=== PATIENT | male | born 1955 | race Caucasian/White ===

== ENCOUNTER 2022-07-26 05:31 | Inpatient (IN) | payer OTHER ==
[~2022-07-26] VITALS: Ht 162.6 cm; Wt 98.9 kg
[2022-07-26 06:26] LABS: BG BASE EXCESS -6.7 mmol/L (-2.0-2.0); BG CARBOXYHEMOGLOBIN 1.7 % (0.5-1.5); BG DEOXYHEMOGLOBIN 1.5 % (0.0-5.0); BG FRACTION INSPIRED OXYGEN 100; BG HCO3 ACT 23.4 mmol/L (22.0-26.0); BG OXYGEN SATURATION 98.5 % (92.0-98.5); BG OXYHEMOGLOBIN 96.8 % (94.0-97.0); BG PCO2 70.8 mmHg (35.0-45.0); BG PH 7.137 (7.350-7.450); BG PO2 165.6 mmHg (75.0-100.0); BG SAMPLE SITE LEFT RADIAL; BG TOTAL HEMOGLOBIN 12.5 g/dL (12.0-18.0); BG VENT MODE MASK - NRB
[2022-07-26 06:36] LABS: BASOPHILS % 0.1 % (0.0-2.0); EOSINOPHILS % 0.1 % (0.0-5.0); HEMATOCRIT. 37.9 % (42.0-52.0); HEMOGLOBIN. 12.1 g/dL (14.0-18.0); LYMPHOCYTES % 7.7 % (20.0-50.0); MEAN CORPUSCULAR HEMOGLOBIN 28.9 pg (28.0-32.0); MEAN CORPUSCULAR VOLUME 90.7 fL (80.0-94.0); MEAN PLATELET VOLUME 8.3 fl (7.4-10.4); MONOCYTES % 11.3 % (2.0-8.0); NEUTROPHILS % 80.8 % (40.0-76.0); PLATELET 297 x1000/uL (130-400); RED BLOOD CELL COUNT 4.17 mill/uL (4.7-6.1); RED CELL DISTRIBUTION WIDTH 16.8 % (11.6-14.6)
[2022-07-26 06:43] LABS: CHLORIDE 101 mEq/L (98-107)
[2022-07-26] MEDS ORDERED: CALCIUM CHLORIDE 1GM/10ML SYR IV ONE (08:15)
[2022-07-26] MEDS ORDERED: ALBUTEROL (0.083%) 2.5MG/3ML NEB HHN ONE (08:15)
[2022-07-26] MEDS ORDERED: SODIUM BICARBONATE 8.4% 1 MEQ/ML 50ML SYR IV ONE (08:15)
[2022-07-26] MEDS ORDERED: DEXTROSE 50% WATER 50ML SYRINGE IV ONE (08:15)
[2022-07-26] MEDS ORDERED: HYDRALAZINE 20MG/ML VIAL IV ONE (08:15)
[2022-07-26] MEDS ORDERED: INSULIN REGULAR (HUMULIN R) 300UNITS/3ML VIAL IV ONE (08:15)
[2022-07-26 08:53] LABS: BG CARBOXYHEMOGLOBIN 1.1 % (0.5-1.5); BG DEOXYHEMOGLOBIN 0.8 % (0.0-5.0); BG METHEMOGLOBIN 0.3 % (0.0-1.5); BG OXYGEN SATURATION 99.2 % (92.0-98.5); BG OXYHEMOGLOBIN 97.8 % (94.0-97.0); BG PCO2 62.2 mmHg (35.0-45.0); BG PH 7.186 (7.350-7.450); BG PO2 345.4 mmHg (75.0-100.0); BG SAMPLE SITE RIGHT RADIAL; BG TOTAL HEMOGLOBIN 12.4 g/dL (12.0-18.0); BG VENT MODE MASK - BIPAP
[2022-07-26] MEDS: ALBUTEROL (0.083%) 2.5MG/3ML NEB HHN NR ×3 (11:28→11:30)
[2022-07-26] MEDS ORDERED: IPRATROPIUM/ALBUTEROL 0.5-3(2.5)MG/3ML NEB HHN PRN (11:45)
[2022-07-26] MEDS: METHYLPREDNISOLONE SOD SUCC 40 MG/ML VIAL IV SCH ×2 (11:45→20:26)
[2022-07-26] MEDS: IPRATROPIUM/ALBUTEROL 0.5-3(2.5)MG/3ML NEB HHN SCH ×3 (12:00→21:08)
[2022-07-26 12:15] LABS: BG BASE EXCESS -5.5 mmol/L (-2.0-2.0); BG CARBOXYHEMOGLOBIN 1.1 % (0.5-1.5); BG DEOXYHEMOGLOBIN 2.9 % (0.0-5.0); BG HCO3 ACT 23.7 mmol/L (22.0-26.0); BG METHEMOGLOBIN 0.2 % (0.0-1.5); BG OXYGEN SATURATION 97.1 % (92.0-98.5); BG OXYHEMOGLOBIN 95.8 % (94.0-97.0); BG PH 7.186 (7.350-7.450); BG PO2 100.3 mmHg (75.0-100.0); BG SAMPLE SITE RIGHT RADIAL; BG TOTAL HEMOGLOBIN 12.6 g/dL (12.0-18.0); BG VENT MODE MASK - BIPAP
[2022-07-26] MEDS: AMLODIPINE 10MG TABLET PO SCH (12:45)
[2022-07-26] MEDS ORDERED: DOCUSATE SODIUM 100MG CAPSULE PO PRN (12:45)
[2022-07-26] MEDS ORDERED: CLONIDINE 0.1MG TABLET PO PRN (12:45)
[2022-07-26] MEDS ORDERED: DEXTROSE 50% WATER 50ML SYRINGE IV PRN (12:45)
[2022-07-26] MEDS: GUAIFENESIN/DM 600MG/30MG ER TAB 12HR PO SCH ×2 (12:45→21:00)
[2022-07-26] MEDS ORDERED: NITROGLYCERIN 0.4MG TABLET SL SL PRN (12:45)
[2022-07-26] MEDS ORDERED: SODIUM CHLORIDE 0.9% 500 ML IV ONE (12:45)
[2022-07-26] MEDS ORDERED: ZOLPIDEM TARTRATE 5MG TABLET PO PRN (12:45)
[2022-07-26] MEDS ORDERED: MAGNESIUM/ALUMINUM HYDROXIDE/SIMETHICONE 30ML UDC PO PRN (12:45)
[2022-07-26] MEDS ORDERED: ONDANSETRON HCL 4MG/2ML INJ IV PRN (12:45)
[2022-07-26] MEDS: BLOOD SUGAR DIAGNOSTIC STRIP TEST SCH ×2 (13:00→21:00)
[2022-07-26] MEDS: INSULIN LISPRO 100 UNITS/ML SUBCUT SCH ×3 (13:20→21:15)
[2022-07-26] MEDS ORDERED: ASPIRIN 325MG EC TABLET PO SCH (14:00)
[2022-07-26] MEDS ORDERED: METOLAZONE 10MG TABLET PO SCH (14:00)
[2022-07-26 15:01] LABS: T4 FREE 0.85 ng/dL (0.76-1.46)
[2022-07-26 15:23] LABS: VITAMIN B12 SERUM 1571 pg/mL (211-911)
[2022-07-26] MEDS: NITROGLYCERIN OINT 1GM/INCH UDPKT TD SCH ×2 (15:41→21:31)
[2022-07-26] MEDS ORDERED: FUROSEMIDE 100MG/10ML VIAL IVP NR (16:00)
[2022-07-26 16:36] VITALS: BP 135/70
[2022-07-26 17:13] LABS: BG BASE EXCESS -6.6 mmol/L (-2.0-2.0); BG CARBOXYHEMOGLOBIN 0.5 % (0.5-1.5); BG DEOXYHEMOGLOBIN 2.5 % (0.0-5.0); BG HCO3 ACT 21.5 mmol/L (22.0-26.0); BG METHEMOGLOBIN 0.3 % (0.0-1.5); BG OXYGEN SATURATION 97.5 % (92.0-98.5); BG OXYHEMOGLOBIN 96.7 % (94.0-97.0); BG PCO2 53.9 mmHg (35.0-45.0); BG PH 7.218 (7.350-7.450); BG SAMPLE SITE RIGHT RADIAL; BG TOTAL HEMOGLOBIN 12.2 g/dL (12.0-18.0); BG VENT MODE MASK - BIPAP
[2022-07-26 18:00] VITALS: BP 137/76
[2022-07-26] MEDS: FUROSEMIDE 40MG/4ML VIAL IVP SCH (18:43)
[2022-07-26 18:50] LABS: CREATINE KINASE MB FRACTION 6.4 ng/mL (0.5-3.6)
[2022-07-26 20:00] VITALS: BP 154/49
[2022-07-26] MEDS: ENOXAPARIN 40MG/0.4ML SYR SUBCUT SCH (20:32)
[2022-07-26] MEDS: ASCORBIC ACID 500 MG TABLET PO SCH (21:00)
[2022-07-26] MEDS: FAMOTIDINE 20MG TABLET PO SCH (21:00)
[2022-07-26 22:00] VITALS: BP 147/52
[2022-07-26 22:34] LABS: INR 1.1; PROTHROMBIN TIME 12.1 sec (9.6-11.0)
[2022-07-27] VITALS (13 sets, daily range): BP systolic 132–186; BP diastolic 43–142
[2022-07-27] MEDS: IPRATROPIUM/ALBUTEROL 0.5-3(2.5)MG/3ML NEB HHN SCH ×6 (00:22→20:33)
[2022-07-27 03:06] LABS: CREATINE KINASE MB FRACTION 5.8 ng/mL (0.5-3.6)
[2022-07-27] MEDS: METHYLPREDNISOLONE SOD SUCC 40 MG/ML VIAL IV SCH ×3 (03:47→21:08)
[2022-07-27] MEDS: FUROSEMIDE 40MG/4ML VIAL IVP SCH ×2 (05:20→17:55)
[2022-07-27] MEDS: NITROGLYCERIN OINT 1GM/INCH UDPKT TD SCH ×3 (05:21→21:27)
[2022-07-27] MEDS: BLOOD SUGAR DIAGNOSTIC STRIP TEST SCH ×4 (07:30→21:16)
[2022-07-27] MEDS: INSULIN LISPRO 100 UNITS/ML SUBCUT SCH ×5 (08:00→22:17)
[2022-07-27 08:08] LABS: HEMATOCRIT. 35.7 % (42.0-52.0); HEMOGLOBIN. 11.1 g/dL (14.0-18.0); MEAN CORPUSCULAR HEMOGLOBIN 28.8 pg (28.0-32.0); MEAN CORPUSCULAR VOLUME 92.7 fL (80.0-94.0); MEAN PLATELET VOLUME 8.9 fl (7.4-10.4); PLATELET 280 x1000/uL (130-400); RED BLOOD CELL COUNT 3.85 mill/uL (4.7-6.1); RED CELL DISTRIBUTION WIDTH 17.5 % (11.6-14.6)
[2022-07-27] MEDS: AMLODIPINE 10MG TABLET PO SCH (09:34)
[2022-07-27] MEDS: ASCORBIC ACID 500 MG TABLET PO SCH ×2 (09:34→21:16)
[2022-07-27] MEDS: ZINC SULFATE 220 MG ( 50 ) CAPSULE PO SCH (09:35)
[2022-07-27] MEDS: GUAIFENESIN/DM 600MG/30MG ER TAB 12HR PO SCH ×2 (09:37→22:19)
[2022-07-27 10:35] LABS: CHLORIDE 104 mEq/L (98-107)
[2022-07-27 11:09] LABS: PHOSPHORUS 8.7 mg/dL (2.5-4.9)
[2022-07-27] MEDS ORDERED: DEXTROSE 50% WATER 50ML SYRINGE IV NR (14:42)
[2022-07-27] MEDS ORDERED: CALCIUM GLUCONATE 100MG/ML 10ML VIAL IV NR (15:00)
[2022-07-27] MEDS ORDERED: SODIUM POLYSTYRENE SULFONATE 15 G/60 ML BOT PO NR (15:00)
[2022-07-27] MEDS ORDERED: SODIUM BICARBONATE 8.4% 1 MEQ/ML 50ML SYR IV NR (15:00)
[2022-07-27] MEDS ORDERED: INSULIN REGULAR (HUMULIN R) 300UNITS/3ML VIAL IV NR (16:00)
[2022-07-27] MEDS: ENOXAPARIN 40MG/0.4ML SYR SUBCUT SCH (21:16)
[2022-07-27] MEDS: FAMOTIDINE 20MG TABLET PO SCH (21:16)
[2022-07-27] MEDS: ACETAMINOPHEN 325MG TABLET PO PRN (22:39)
[2022-07-28] VITALS (38 sets, daily range): BP systolic 99–149; BP diastolic 37–115
[2022-07-28] MEDS: IPRATROPIUM/ALBUTEROL 0.5-3(2.5)MG/3ML NEB HHN SCH ×6 (00:12→20:51)
[2022-07-28] MEDS: METHYLPREDNISOLONE SOD SUCC 40 MG/ML VIAL IV SCH ×3 (03:29→20:41)
[2022-07-28] MEDS: NITROGLYCERIN OINT 1GM/INCH UDPKT TD SCH ×3 (05:58→21:11)
[2022-07-28] MEDS: FUROSEMIDE 40MG/4ML VIAL IVP SCH ×2 (06:01→18:14)
[2022-07-28 06:59] LABS: HEMATOCRIT. 33.6 % (42.0-52.0); HEMOGLOBIN. 10.3 g/dL (14.0-18.0); MEAN CORPUSCULAR HEMOGLOBIN 28.7 pg (28.0-32.0); MEAN CORPUSCULAR VOLUME 93.7 fL (80.0-94.0); MEAN PLATELET VOLUME 8.6 fl (7.4-10.4); PLATELET 275 x1000/uL (130-400); RED BLOOD CELL COUNT 3.59 mill/uL (4.7-6.1); RED CELL DISTRIBUTION WIDTH 17.4 % (11.6-14.6)
[2022-07-28] MEDS: BLOOD SUGAR DIAGNOSTIC STRIP TEST SCH ×4 (07:30→20:37)
[2022-07-28] MEDS: INSULIN LISPRO 100 UNITS/ML SUBCUT SCH ×4 (08:27→20:43)
[2022-07-28 09:00] LABS: BG CARBOXYHEMOGLOBIN 0.4 % (0.5-1.5); BG DEOXYHEMOGLOBIN 1.1 % (0.0-5.0); BG FRACTION INSPIRED OXYGEN 100; BG HCO3 ACT 19.4 mmol/L (22.0-26.0); BG METHEMOGLOBIN 0.3 % (0.0-1.5); BG OXYGEN SATURATION 98.9 % (92.0-98.5); BG OXYHEMOGLOBIN 98.2 % (94.0-97.0); BG PCO2 53.2 mmHg (35.0-45.0); BG PH 7.179 (7.350-7.450); BG PO2 198.6 mmHg (75.0-100.0); BG SAMPLE SITE LEFT RADIAL; BG TOTAL HEMOGLOBIN 11.2 g/dL (12.0-18.0); BG TOTAL RESPIRATORY RATE 26 b/min; BG VENT MODE MASK - BIPAP
[2022-07-28] MEDS: ASCORBIC ACID 500 MG TABLET PO SCH ×2 (09:00→20:41)
[2022-07-28] MEDS: AMLODIPINE 10MG TABLET PO SCH (09:00)
[2022-07-28] MEDS: ZINC SULFATE 220 MG ( 50 ) CAPSULE PO SCH (09:00)
[2022-07-28] MEDS: GUAIFENESIN/DM 600MG/30MG ER TAB 12HR PO SCH ×2 (09:00→21:59)
[2022-07-28] MEDS: ACETAMINOPHEN 325MG TABLET PO PRN (10:27)
[2022-07-28 13:31] LABS: NUCLEATED RED BLOOD CELLS 1 /100 WBC; PLATELET ESTIMATE NORMAL
[2022-07-28 15:19] LABS: PLATELET ESTIMATE NORMAL
[2022-07-28] MEDS: MIDAZOLAM HCL 100 MG in SODIUM CHLORIDE 0.9% 80 ML IV PRN (17:41)
[2022-07-28] MEDS: FENTANYL CITRATE/PF 2,500 MCG in SODIUM CHLORIDE 0.9% 200 ML IV PRN (17:42)
[2022-07-28 20:36] LABS: BG BASE EXCESS -6.7 mmol/L (-2.0-2.0); BG CARBOXYHEMOGLOBIN 0.4 % (0.5-1.5); BG DEOXYHEMOGLOBIN 4.8 % (0.0-5.0); BG FRACTION INSPIRED OXYGEN 100; BG HCO3 ACT 20.5 mmol/L (22.0-26.0); BG OXYGEN SATURATION 95.2 % (92.0-98.5); BG OXYHEMOGLOBIN 94.8 % (94.0-97.0); BG PCO2 47.9 mmHg (35.0-45.0); BG PH 7.249 (7.350-7.450); BG PO2 84.6 mmHg (75.0-100.0); BG SAMPLE SITE LEFT BRACHIAL; BG TOTAL HEMOGLOBIN 11.2 g/dL (12.0-18.0); BG VENT MODE VENT - AC
[2022-07-28] MEDS: FAMOTIDINE 20MG TABLET PO SCH (20:41)
[2022-07-28] MEDS: ENOXAPARIN 30MG/0.3ML SYR SUBCUT SCH (20:42)
[2022-07-28] MEDS ORDERED: INSULIN GLARGINE 100 UNITS/ML SUBCUT SCH (22:00)
[2022-07-28] MEDS ORDERED: INSULIN REGULAR (HUMULIN R) 300UNITS/3ML VIAL IV NR (23:15)
[2022-07-28] MEDS ORDERED: SODIUM POLYSTYRENE SULFONATE 15 G/60 ML BOT PO NR (23:15)
[2022-07-28] MEDS ORDERED: SODIUM BICARBONATE 8.4% 1 MEQ/ML 50ML SYR IV NR (23:15)
[2022-07-28] MEDS ORDERED: CALCIUM CHLORIDE 1,000 MG in DEXT 5% WATER 90 ML IV NR (23:59)
[2022-07-29] VITALS (96 sets, daily range): BP systolic 93–154; BP diastolic 47–78
[2022-07-29 00:12] LABS: CLARITY URINE TURBID (CLEAR); COLOR URINE DARK YELLOW (YELLOW); KETONES URINE NEGATIVE (NEGATIVE); LEUKOCYTE ESTERASE URINE 2+ (NEGATIVE); NITRITE URINE NEGATIVE (NEGATIVE); OCCULT BLOOD URINE 3+ (NEGATIVE); PROTEIN URINE 3+ (NEGATIVE); SPECIFIC GRAVITY URINE 1.017 (1.005-1.030)
[2022-07-29] MEDS: IPRATROPIUM/ALBUTEROL 0.5-3(2.5)MG/3ML NEB HHN SCH ×6 (00:17→20:02)
[2022-07-29 04:06] LABS: HEMATOCRIT 32.1 % (42.0-52.0); HEMOGLOBIN 10.2 g/dL (14.0-18.0); MEAN CORPUSCULAR HEMOGLOBIN 28.8 pg (28.0-32.0); MEAN CORPUSCULAR VOLUME 90.5 fL (80.0-94.0); PLATELET 252 x1000/uL (130-400); RED BLOOD CELL COUNT 3.55 mill/uL (4.7-6.1); RED CELL DISTRIBUTION WIDTH 17.1 % (11.6-14.6)
[2022-07-29] MEDS: NITROGLYCERIN OINT 1GM/INCH UDPKT TD SCH ×3 (04:56→21:46)
[2022-07-29 04:57] LABS: CHLORIDE 101 mEq/L (98-107)
[2022-07-29] MEDS: FUROSEMIDE 40MG/4ML VIAL IVP SCH ×2 (04:57→17:32)
[2022-07-29] MEDS: METHYLPREDNISOLONE SOD SUCC 40 MG/ML VIAL IV SCH ×2 (04:59→11:40)
[2022-07-29] MEDS: MIDAZOLAM HCL 100 MG in SODIUM CHLORIDE 0.9% 80 ML IV PRN (05:01)
[2022-07-29] MEDS ORDERED: INSULIN REGULAR (HUMULIN R) 300UNITS/3ML VIAL IV NR (05:30)
[2022-07-29] MEDS ORDERED: SODIUM BICARBONATE 8.4% 1 MEQ/ML 50ML SYR IV NR (05:30)
[2022-07-29 05:50] LABS: PHOSPHORUS 8.5 mg/dL (2.5-4.9)
[2022-07-29] MEDS ORDERED: MANNITOL 12.5G (25%) VIAL 50ML IV ONE (06:30)
[2022-07-29] MEDS: BLOOD SUGAR DIAGNOSTIC STRIP TEST SCH ×4 (07:50→21:00)
[2022-07-29] MEDS: ASCORBIC ACID 500 MG TABLET PO SCH ×2 (08:38→21:45)
[2022-07-29] MEDS: ZINC SULFATE 220 MG ( 50 ) CAPSULE PO SCH (08:38)
[2022-07-29] MEDS: GUAIFENESIN/DM 600MG/30MG ER TAB 12HR PO SCH ×2 (08:40→21:00)
[2022-07-29] MEDS: INSULIN LISPRO 100 UNITS/ML SUBCUT SCH ×4 (08:42→21:46)
[2022-07-29 08:49] LABS: BG BASE EXCESS -4.2 mmol/L (-2.0-2.0); BG DEOXYHEMOGLOBIN 2.4 % (0.0-5.0); BG FRACTION INSPIRED OXYGEN 100; BG HCO3 ACT 21.8 mmol/L (22.0-26.0); BG OXYGEN SATURATION 97.6 % (92.0-98.5); BG OXYHEMOGLOBIN 97.6 % (94.0-97.0); BG PCO2 43.6 mmHg (35.0-45.0); BG PH 7.317 (7.350-7.450); BG PO2 116.2 mmHg (75.0-100.0); BG SAMPLE SITE LEFT BRACHIAL; BG TOTAL HEMOGLOBIN 10.9 g/dL (12.0-18.0); BG TOTAL RESPIRATORY RATE 21 b/min; BG VENT MODE VENT - AC
[2022-07-29] MEDS: AMLODIPINE 10MG TABLET PO SCH (08:49)
[2022-07-29] MEDS ORDERED: MANNITOL 12.5G (25%) VIAL 50ML IV SCH ×2 (09:30→09:45)
[2022-07-29] MEDS ORDERED: LIDOCAINE HCL 1% 10 MG/ML 10ML VIAL ONE (09:43)
[2022-07-29 15:03] LABS: HEPATITIS B SURFACE ANTIGEN NEGATIVE
[2022-07-29] MEDS: FAMOTIDINE 20MG TABLET PO SCH (21:45)
[2022-07-29] MEDS: ENOXAPARIN 30MG/0.3ML SYR SUBCUT SCH (21:45)
[2022-07-29] MEDS ORDERED: INSULIN GLARGINE 100 UNITS/ML SUBCUT SCH (22:00)
[2022-07-30] VITALS (103 sets, daily range): BP systolic 97–143; BP diastolic 41–83
[2022-07-30] MEDS: IPRATROPIUM/ALBUTEROL 0.5-3(2.5)MG/3ML NEB HHN SCH ×7 (00:41→23:57)
[2022-07-30] MEDS: FUROSEMIDE 40MG/4ML VIAL IVP SCH ×2 (06:02→18:14)
[2022-07-30] MEDS: FENTANYL CITRATE/PF 2,500 MCG in SODIUM CHLORIDE 0.9% 200 ML IV PRN (06:03)
[2022-07-30] MEDS: NITROGLYCERIN OINT 1GM/INCH UDPKT TD SCH ×3 (06:03→21:29)
[2022-07-30 07:42] LABS: HEMATOCRIT. 32.7 % (42.0-52.0); HEMOGLOBIN. 10.2 g/dL (14.0-18.0); MEAN CORPUSCULAR HEMOGLOBIN 28.7 pg (28.0-32.0); MEAN CORPUSCULAR VOLUME 91.8 fL (80.0-94.0); MEAN PLATELET VOLUME 8.7 fl (7.4-10.4); PLATELET 233 x1000/uL (130-400); RED BLOOD CELL COUNT 3.56 mill/uL (4.7-6.1); RED CELL DISTRIBUTION WIDTH 17.4 % (11.6-14.6)
[2022-07-30] MEDS: BLOOD SUGAR DIAGNOSTIC STRIP TEST SCH ×4 (07:50→21:19)
[2022-07-30] MEDS ORDERED: DEXTROSE 50% WATER 50ML SYRINGE IV PRN (08:00)
[2022-07-30] MEDS: GUAIFENESIN/DM 600MG/30MG ER TAB 12HR PO SCH ×2 (09:00→21:25)
[2022-07-30] MEDS: ZINC SULFATE 220 MG ( 50 ) CAPSULE PO SCH (09:05)
[2022-07-30] MEDS: AMLODIPINE 10MG TABLET PO SCH (09:06)
[2022-07-30] MEDS: ASCORBIC ACID 500 MG TABLET PO SCH ×2 (09:06→21:19)
[2022-07-30] MEDS: PREDNISONE 20MG TABLET PO SCH (09:06)
[2022-07-30] MEDS: INSULIN LISPRO 100 UNITS/ML SUBCUT SCH ×4 (09:09→21:27)
[2022-07-30 09:29] LABS: BG BASE EXCESS -4.9 mmol/L (-2.0-2.0); BG CARBOXYHEMOGLOBIN 0.3 % (0.5-1.5); BG DEOXYHEMOGLOBIN 4.8 % (0.0-5.0); BG FRACTION INSPIRED OXYGEN 90; BG HCO3 ACT 21.9 mmol/L (22.0-26.0); BG METHEMOGLOBIN 0.3 % (0.0-1.5); BG OXYGEN SATURATION 95.2 % (92.0-98.5); BG OXYHEMOGLOBIN 94.6 % (94.0-97.0); BG PCO2 47.7 mmHg (35.0-45.0); BG PH 7.279 (7.350-7.450); BG PO2 90.4 mmHg (75.0-100.0); BG SAMPLE SITE RIGHT RADIAL; BG TOTAL HEMOGLOBIN 10.9 g/dL (12.0-18.0); BG VENT MODE VENT - AC
[2022-07-30 11:34] LABS: ANTI-NUCLEAR ANTIBODIES DIRECT Positive (Negative)
[2022-07-30] MEDS: MIDAZOLAM HCL 100 MG in SODIUM CHLORIDE 0.9% 80 ML IV PRN (18:36)
[2022-07-30 19:50] LABS: PLATELET ESTIMATE NORMAL
[2022-07-30] MEDS: FAMOTIDINE 20MG TABLET PO SCH (21:15)
[2022-07-30] MEDS: ENOXAPARIN 30MG/0.3ML SYR SUBCUT SCH (21:25)
[2022-07-30] MEDS: INSULIN GLARGINE 100 UNITS/ML SUBCUT SCH (21:29)
[2022-07-31] VITALS (72 sets, daily range): BP systolic 87–145; BP diastolic 29–62
[2022-07-31] MEDS: IPRATROPIUM/ALBUTEROL 0.5-3(2.5)MG/3ML NEB HHN SCH ×5 (04:01→20:55)
[2022-07-31 06:09] LABS: BASOPHILS % 0.6 % (0.0-2.0); EOSINOPHILS % 0.4 % (0.0-5.0); HEMATOCRIT. 30.6 % (42.0-52.0); MEAN CORPUSCULAR HEMOGLOBIN 29.4 pg (28.0-32.0); MEAN CORPUSCULAR VOLUME 89.8 fL (80.0-94.0); MEAN PLATELET VOLUME 8.2 fl (7.4-10.4); MONOCYTES % 9.8 % (2.0-8.0); NEUTROPHILS % 78.2 % (40.0-76.0); PLATELET 188 x1000/uL (130-400); RED BLOOD CELL COUNT 3.41 mill/uL (4.7-6.1); RED CELL DISTRIBUTION WIDTH 17.2 % (11.6-14.6)
[2022-07-31] MEDS: NITROGLYCERIN OINT 1GM/INCH UDPKT TD SCH ×3 (06:27→21:56)
[2022-07-31] MEDS: FUROSEMIDE 40MG/4ML VIAL IVP SCH ×2 (06:27→17:40)
[2022-07-31] MEDS: BLOOD SUGAR DIAGNOSTIC STRIP TEST SCH ×4 (07:50→20:37)
[2022-07-31] MEDS: INSULIN LISPRO 100 UNITS/ML SUBCUT SCH ×4 (08:20→20:47)
[2022-07-31 08:36] LABS: BG BASE EXCESS -3.8 mmol/L (-2.0-2.0); BG CARBOXYHEMOGLOBIN 0.6 % (0.5-1.5); BG DEOXYHEMOGLOBIN 5.8 % (0.0-5.0); BG FRACTION INSPIRED OXYGEN 85; BG HCO3 ACT 22.1 mmol/L (22.0-26.0); BG OXYGEN SATURATION 94.2 % (92.0-98.5); BG OXYHEMOGLOBIN 93.6 % (94.0-97.0); BG PCO2 43.7 mmHg (35.0-45.0); BG PH 7.322 (7.350-7.450); BG PO2 78.8 mmHg (75.0-100.0); BG SAMPLE SITE RIGHT RADIAL; BG VENT MODE VENT - AC
[2022-07-31] MEDS: ASCORBIC ACID 500 MG TABLET PO SCH ×2 (15:45→20:44)
[2022-07-31] MEDS: ZINC SULFATE 220 MG ( 50 ) CAPSULE PO SCH (15:45)
[2022-07-31] MEDS: AMLODIPINE 10MG TABLET PO SCH (15:45)
[2022-07-31] MEDS: GUAIFENESIN/DM 600MG/30MG ER TAB 12HR PO SCH ×2 (15:45→20:44)
[2022-07-31] MEDS: PREDNISONE 20MG TABLET PO SCH (15:45)
[2022-07-31] MEDS: FOLIC ACID/VITAMIN B COMP W-C TABLET PO SCH (15:45)
[2022-07-31] MEDS: MIDAZOLAM HCL 100 MG in SODIUM CHLORIDE 0.9% 80 ML IV PRN (19:24)
[2022-07-31] MEDS: FENTANYL CITRATE/PF 2,500 MCG in SODIUM CHLORIDE 0.9% 200 ML IV PRN (19:26)
[2022-07-31] MEDS: FAMOTIDINE 20MG TABLET PO SCH (20:44)
[2022-07-31] MEDS: ENOXAPARIN 30MG/0.3ML SYR SUBCUT SCH (20:45)
[2022-07-31] MEDS: INSULIN GLARGINE 100 UNITS/ML SUBCUT SCH (21:56)
[2022-08-01] VITALS (68 sets, daily range): BP systolic 109–155; BP diastolic 45–83
[2022-08-01] MEDS: ACETAMINOPHEN 325MG TABLET PO PRN ×2 (00:27→06:48)
[2022-08-01] MEDS: IPRATROPIUM/ALBUTEROL 0.5-3(2.5)MG/3ML NEB HHN SCH ×6 (02:42→20:03)
[2022-08-01] MEDS ORDERED: LOSA50TA41 PO (06:01)
[2022-08-01] MEDS ORDERED: NIFE-33 MT (06:01)
[2022-08-01] MEDS ORDERED: LEVO112T7 PO (06:01)
[2022-08-01] MEDS ORDERED: ATOR-2 PO (06:01)
[2022-08-01] MEDS ORDERED: CHOL400D7 PO (06:01)
[2022-08-01] MEDS ORDERED: APIX2.5T PO (06:01)
[2022-08-01 06:02] LABS: HEMATOCRIT. 33.7 % (42.0-52.0); HEMOGLOBIN. 10.5 g/dL (14.0-18.0); MEAN CORPUSCULAR HEMOGLOBIN 28.6 pg (28.0-32.0); MEAN CORPUSCULAR VOLUME 91.6 fL (80.0-94.0); MEAN PLATELET VOLUME 8.5 fl (7.4-10.4); PLATELET 167 x1000/uL (130-400); RED BLOOD CELL COUNT 3.68 mill/uL (4.7-6.1); RED CELL DISTRIBUTION WIDTH 17.2 % (11.6-14.6)
[2022-08-01] MEDS: NITROGLYCERIN OINT 1GM/INCH UDPKT TD SCH ×3 (06:03→21:39)
[2022-08-01] MEDS: FUROSEMIDE 40MG/4ML VIAL IVP SCH ×2 (06:04→17:29)
[2022-08-01] MEDS ORDERED: INSULIN REGULAR (HUMULIN R) 300UNITS/3ML VIAL IV NR ×3 (06:30→21:08)
[2022-08-01] MEDS ORDERED: SODIUM POLYSTYRENE SULFONATE 15 G/60 ML BOT PO NR ×3 (06:30→21:08)
[2022-08-01] MEDS ORDERED: DEXTROSE 50% WATER 50ML SYRINGE IV NR ×3 (06:30→21:08)
[2022-08-01] MEDS: BLOOD SUGAR DIAGNOSTIC STRIP TEST SCH ×4 (07:02→21:40)
[2022-08-01] MEDS: INSULIN LISPRO 100 UNITS/ML SUBCUT SCH ×4 (07:06→21:41)
[2022-08-01 07:34] LABS: PLATELET ESTIMATE NORMAL
[2022-08-01 07:41] LABS: PHOSPHORUS 12.7 mg/dL (2.5-4.9)
[2022-08-01 08:52] LABS: BG CARBOXYHEMOGLOBIN 0.3 % (0.5-1.5); BG DEOXYHEMOGLOBIN 14.6 % (0.0-5.0); BG FRACTION INSPIRED OXYGEN 85; BG HCO3 ACT 19.6 mmol/L (22.0-26.0); BG METHEMOGLOBIN 0.1 % (0.0-1.5); BG OXYGEN SATURATION 85.3 % (92.0-98.5); BG PH 7.267 (7.350-7.450); BG PO2 56.5 mmHg (75.0-100.0); BG SAMPLE SITE RIGHT RADIAL; BG TOTAL HEMOGLOBIN 10.8 g/dL (12.0-18.0); BG VENT MODE VENT - AC
[2022-08-01] MEDS: PREDNISONE 20MG TABLET PO SCH (08:58)
[2022-08-01] MEDS: FOLIC ACID/VITAMIN B COMP W-C TABLET PO SCH (08:59)
[2022-08-01] MEDS: GUAIFENESIN 200MG/10ML SUGAR FREE UDC PO PRN (08:59)
[2022-08-01] MEDS: GUAIFENESIN/DM 600MG/30MG ER TAB 12HR PO SCH ×2 (08:59→21:00)
[2022-08-01] MEDS: AMLODIPINE 10MG TABLET PO SCH (08:59)
[2022-08-01] MEDS: ZINC SULFATE 220 MG ( 50 ) CAPSULE PO SCH (09:18)
[2022-08-01] MEDS: ASCORBIC ACID 500 MG TABLET PO SCH ×2 (09:18→21:39)
[2022-08-01] MEDS ORDERED: SODIUM BICARBONATE 8.4% 1 MEQ/ML 50ML SYR IV NR ×2 (09:45→21:08)
[2022-08-01] MEDS ORDERED: CALCIUM CHLORIDE 1,000 MG in DEXT 5% WATER 90 ML IV NR (10:30)
[2022-08-01] MEDS: LANTHANUM CARBONATE 500MG CHEW TABLET PO SCH ×2 (13:20→17:29)
[2022-08-01] MEDS: MIDAZOLAM HCL 100 MG in SODIUM CHLORIDE 0.9% 80 ML IV PRN (15:02)
[2022-08-01] MEDS: CEFEPIME 2,000 MG in DEXT 5% WATER 100 ML IV SCH (18:30)
[2022-08-01] MEDS: FAMOTIDINE 20MG TABLET PO SCH (21:39)
[2022-08-01] MEDS: ENOXAPARIN 30MG/0.3ML SYR SUBCUT SCH (21:43)
[2022-08-01] MEDS ORDERED: INSULIN GLARGINE 100 UNITS/ML SUBCUT SCH (22:00)
[2022-08-02] VITALS (61 sets, daily range): BP systolic 102–157; BP diastolic 38–68
[2022-08-02] MEDS: IPRATROPIUM/ALBUTEROL 0.5-3(2.5)MG/3ML NEB HHN SCH ×5 (00:34→20:53)
[2022-08-02] MEDS: FENTANYL CITRATE/PF 2,500 MCG in SODIUM CHLORIDE 0.9% 200 ML IV PRN (01:09)
[2022-08-02] MEDS: ACETAMINOPHEN 325MG TABLET PO PRN ×3 (01:11→19:11)
[2022-08-02] MEDS: NITROGLYCERIN OINT 1GM/INCH UDPKT TD SCH ×3 (05:53→21:17)
[2022-08-02] MEDS: FUROSEMIDE 40MG/4ML VIAL IVP SCH ×2 (05:53→17:32)
[2022-08-02 06:17] LABS: HEMATOCRIT 34.1 % (42.0-52.0); HEMOGLOBIN 10.9 g/dL (14.0-18.0); MEAN CORPUSCULAR VOLUME 90.9 fL (80.0-94.0); PLATELET 172 x1000/uL (130-400); RED BLOOD CELL COUNT 3.74 mill/uL (4.7-6.1)
[2022-08-02 06:37] LABS: CHLORIDE 100 mEq/L (98-107)
[2022-08-02 07:27] LABS: PHOSPHORUS 10.6 mg/dL (2.5-4.9)
[2022-08-02] MEDS ORDERED: SODIUM POLYSTYRENE SULFONATE 15 G/60 ML BOT PO NR (08:00)
[2022-08-02] MEDS: INSULIN LISPRO 100 UNITS/ML SUBCUT SCH ×3 (08:20→17:32)
[2022-08-02 08:21] LABS: BG BASE EXCESS -3.7 mmol/L (-2.0-2.0); BG CARBOXYHEMOGLOBIN 0.1 % (0.5-1.5); BG DEOXYHEMOGLOBIN 4.9 % (0.0-5.0); BG FRACTION INSPIRED OXYGEN 100; BG HCO3 ACT 21.7 mmol/L (22.0-26.0); BG METHEMOGLOBIN 0.3 % (0.0-1.5); BG OXYGEN SATURATION 95.1 % (92.0-98.5); BG OXYHEMOGLOBIN 94.7 % (94.0-97.0); BG PCO2 40.5 mmHg (35.0-45.0); BG PH 7.346 (7.350-7.450); BG PO2 82.3 mmHg (75.0-100.0); BG SAMPLE SITE RIGHT RADIAL; BG TOTAL HEMOGLOBIN 11.9 g/dL (12.0-18.0); BG VENT MODE VENT - AC
[2022-08-02] MEDS: ZINC SULFATE 220 MG ( 50 ) CAPSULE PO SCH (08:29)
[2022-08-02] MEDS: ASCORBIC ACID 500 MG TABLET PO SCH ×2 (08:29→21:17)
[2022-08-02] MEDS: AMLODIPINE 10MG TABLET PO SCH (08:29)
[2022-08-02] MEDS: PREDNISONE 20MG TABLET PO SCH (08:29)
[2022-08-02] MEDS: FOLIC ACID/VITAMIN B COMP W-C TABLET PO SCH (08:29)
[2022-08-02] MEDS: BLOOD SUGAR DIAGNOSTIC STRIP TEST SCH ×3 (08:30→17:31)
[2022-08-02] MEDS: LANTHANUM CARBONATE 500MG CHEW TABLET PO SCH ×3 (08:30→17:33)
[2022-08-02] MEDS: GUAIFENESIN/DM 600MG/30MG ER TAB 12HR PO SCH (09:00)
[2022-08-02] MEDS: MIDAZOLAM HCL 100 MG in SODIUM CHLORIDE 0.9% 80 ML IV PRN (15:12)
[2022-08-02] MEDS: CEFEPIME 2,000 MG in DEXT 5% WATER 100 ML IV SCH (17:58)
[2022-08-02] MEDS: ENOXAPARIN 30MG/0.3ML SYR SUBCUT SCH (21:16)
[2022-08-02] MEDS: FAMOTIDINE 20MG TABLET PO SCH (21:16)
[2022-08-02] MEDS: GUAIFENESIN-DM 200MG-20MG/10ML UDC PO SCH (21:19)
[2022-08-02] MEDS: INSULIN GLARGINE 100 UNITS/ML SUBCUT SCH (21:20)
[2022-08-02] MEDS ORDERED: MIDAZOLAM 100MG/100ML PMX 100 ML IV PRN (22:15)
[2022-08-02] MEDS ORDERED: FENTANYL 2500MCG/250ML PMX 250 ML IV SCH (22:15)
[2022-08-02] MEDS ORDERED: FENTANYL CITRATE 2,500 MCG in SODIUM CHLORIDE 0.9% 200 ML IV PRN (22:30)
[2022-08-02] MEDS: MIDAZOLAM HCL 100 MG in SODIUM CHLORIDE 0.9% 100 ML IV PRN (22:31)
[2022-08-03] VITALS (64 sets, daily range): BP systolic 109–153; BP diastolic 27–71
[2022-08-03] MEDS: IPRATROPIUM/ALBUTEROL 0.5-3(2.5)MG/3ML NEB HHN SCH ×6 (00:45→20:51)
[2022-08-03] MEDS: GUAIFENESIN-DM 200MG-20MG/10ML UDC PO SCH ×4 (01:03→17:39)
[2022-08-03] MEDS: INSULIN LISPRO 100 UNITS/ML SUBCUT SCH ×4 (01:04→23:03)
[2022-08-03] MEDS: BLOOD SUGAR DIAGNOSTIC STRIP TEST SCH ×5 (05:35→22:47)
[2022-08-03] MEDS: GUAIFENESIN 200MG/10ML SUGAR FREE UDC PO PRN (05:42)
[2022-08-03] MEDS: FUROSEMIDE 40MG/4ML VIAL IVP SCH ×2 (05:42→17:39)
[2022-08-03] MEDS: NITROGLYCERIN OINT 1GM/INCH UDPKT TD SCH ×3 (05:43→21:53)
[2022-08-03 05:57] LABS: HEMATOCRIT. 33.1 % (42.0-52.0); HEMOGLOBIN. 10.4 g/dL (14.0-18.0); MEAN CORPUSCULAR HEMOGLOBIN 28.9 pg (28.0-32.0); MEAN CORPUSCULAR VOLUME 92.1 fL (80.0-94.0); MEAN PLATELET VOLUME 10.1 fl (7.4-10.4); PLATELET 127 x1000/uL (130-400); RED CELL DISTRIBUTION WIDTH 17.7 % (11.6-14.6)
[2022-08-03 08:08] LABS: PHOSPHORUS 10.6 mg/dL (2.5-4.9)
[2022-08-03 08:15] LABS: BG BASE EXCESS -5.5 mmol/L (-2.0-2.0); BG CARBOXYHEMOGLOBIN 0.3 % (0.5-1.5); BG DEOXYHEMOGLOBIN 6.2 % (0.0-5.0); BG FRACTION INSPIRED OXYGEN 100; BG HCO3 ACT 22.2 mmol/L (22.0-26.0); BG METHEMOGLOBIN 0.3 % (0.0-1.5); BG OXYGEN SATURATION 93.8 % (92.0-98.5); BG OXYHEMOGLOBIN 93.2 % (94.0-97.0); BG PCO2 53.9 mmHg (35.0-45.0); BG PH 7.232 (7.350-7.450); BG PO2 79.5 mmHg (75.0-100.0); BG SAMPLE SITE RIGHT RADIAL; BG TOTAL HEMOGLOBIN 10.9 g/dL (12.0-18.0); BG VENT MODE VENT - AC
[2022-08-03] MEDS: LANTHANUM CARBONATE 500MG CHEW TABLET PO SCH ×3 (08:20→17:39)
[2022-08-03] MEDS: FOLIC ACID/VITAMIN B COMP W-C TABLET PO SCH (09:00)
[2022-08-03] MEDS: ZINC SULFATE 220 MG ( 50 ) CAPSULE PO SCH (09:00)
[2022-08-03] MEDS: AMLODIPINE 10MG TABLET PO SCH (09:00)
[2022-08-03] MEDS: PREDNISONE 20MG TABLET PO SCH (09:00)
[2022-08-03] MEDS: ASCORBIC ACID 500 MG TABLET PO SCH ×2 (09:00→21:51)
[2022-08-03 09:15] LABS: NUCLEATED RED BLOOD CELLS 1 /100 WBC; PLATELET ESTIMATE SLIGHTLY DECREASED
[2022-08-03] MEDS: INSULIN GLARGINE 100 UNITS/ML SUBCUT SCH ×2 (10:00→22:56)
[2022-08-03] MEDS: BUDESONIDE 0.5MG/2ML NEB HHN SCH ×2 (15:33→20:51)
[2022-08-03] MEDS: CEFEPIME 2,000 MG in DEXT 5% WATER 100 ML IV SCH (19:33)
[2022-08-03] MEDS: FAMOTIDINE 20MG TABLET PO SCH (21:50)
[2022-08-04] VITALS (77 sets, daily range): BP systolic 67–156; BP diastolic 19–89
[2022-08-04] MEDS: IPRATROPIUM/ALBUTEROL 0.5-3(2.5)MG/3ML NEB HHN SCH ×7 (00:37→23:33)
[2022-08-04] MEDS: ENOXAPARIN 30MG/0.3ML SYR SUBCUT SCH ×2 (00:55→23:03)
[2022-08-04] MEDS: ACETAMINOPHEN 325MG TABLET PO PRN ×5 (00:57→23:04)
[2022-08-04] MEDS: GUAIFENESIN-DM 200MG-20MG/10ML UDC PO SCH ×5 (01:04→23:03)
[2022-08-04] MEDS: BLOOD SUGAR DIAGNOSTIC STRIP TEST SCH ×3 (06:00→18:43)
[2022-08-04] MEDS: NITROGLYCERIN OINT 1GM/INCH UDPKT TD SCH ×3 (06:00→22:00)
[2022-08-04] MEDS: FUROSEMIDE 40MG/4ML VIAL IVP SCH ×2 (06:20→18:43)
[2022-08-04 06:28] LABS: HEMATOCRIT. 36.5 % (42.0-52.0); HEMOGLOBIN. 11.6 g/dL (14.0-18.0); MEAN CORPUSCULAR HEMOGLOBIN 28.6 pg (28.0-32.0); MEAN CORPUSCULAR VOLUME 90.4 fL (80.0-94.0); MEAN PLATELET VOLUME 10.1 fl (7.4-10.4); PLATELET 170 x1000/uL (130-400); RED BLOOD CELL COUNT 4.04 mill/uL (4.7-6.1); RED CELL DISTRIBUTION WIDTH 16.9 % (11.6-14.6)
[2022-08-04] MEDS: INSULIN LISPRO 100 UNITS/ML SUBCUT SCH ×4 (06:29→18:46)
[2022-08-04 07:03] LABS: PHOSPHORUS 9.1 mg/dL (2.5-4.9)
[2022-08-04 07:25] LABS: NUCLEATED RED BLOOD CELLS 1 /100 WBC
[2022-08-04 07:26] LABS: PLATELET ESTIMATE NORMAL
[2022-08-04 08:53] LABS: BG BASE EXCESS -6.2 mmol/L (-2.0-2.0); BG CARBOXYHEMOGLOBIN 0.8 % (0.5-1.5); BG DEOXYHEMOGLOBIN 2.9 % (0.0-5.0); BG FRACTION INSPIRED OXYGEN 100; BG HCO3 ACT 20.8 mmol/L (22.0-26.0); BG METHEMOGLOBIN 0.1 % (0.0-1.5); BG OXYGEN SATURATION 97.1 % (92.0-98.5); BG OXYHEMOGLOBIN 96.2 % (94.0-97.0); BG PCO2 47.2 mmHg (35.0-45.0); BG PH 7.261 (7.350-7.450); BG PO2 104.2 mmHg (75.0-100.0); BG SAMPLE SITE RIGHT RADIAL; BG TOTAL HEMOGLOBIN 11.8 g/dL (12.0-18.0); BG VENT MODE VENT - AC
[2022-08-04] MEDS: BUDESONIDE 0.5MG/2ML NEB HHN SCH ×2 (09:04→20:03)
[2022-08-04] MEDS: ZINC SULFATE 220 MG ( 50 ) CAPSULE PO SCH (09:29)
[2022-08-04] MEDS: FOLIC ACID/VITAMIN B COMP W-C TABLET PO SCH (09:29)
[2022-08-04] MEDS: LANTHANUM CARBONATE 500MG CHEW TABLET PO SCH ×3 (09:29→18:43)
[2022-08-04] MEDS: PREDNISONE 20MG TABLET PO SCH (09:29)
[2022-08-04] MEDS: ASCORBIC ACID 500 MG TABLET PO SCH ×2 (09:29→23:04)
[2022-08-04] MEDS: AMLODIPINE 10MG TABLET PO SCH (09:30)
[2022-08-04] MEDS: INSULIN GLARGINE 100 UNITS/ML SUBCUT SCH ×2 (10:37→23:05)
[2022-08-04 17:31] LABS: CLARITY URINE CLOUDY (CLEAR); COLOR URINE DARK YELLOW (YELLOW); KETONES URINE TRACE (NEGATIVE); LEUKOCYTE ESTERASE URINE 1+ (NEGATIVE); NITRITE URINE NEGATIVE (NEGATIVE); OCCULT BLOOD URINE 3+ (NEGATIVE); PROTEIN URINE 4+ (NEGATIVE); SPECIFIC GRAVITY URINE 1.027 (1.005-1.030); UROBILINOGEN URINE 0.2 E.U./dL (0.2-1.0)
[2022-08-04] MEDS: CEFEPIME 2,000 MG in DEXT 5% WATER 100 ML IV SCH (18:45)
[2022-08-04] MEDS: NOREPINEPHRINE 32 MG in DEXT 5% WATER 218 ML IV PRN (18:58)
[2022-08-04] MEDS: FAMOTIDINE 20MG TABLET PO SCH (23:04)
[2022-08-05] VITALS (83 sets, daily range): BP systolic 91–160; BP diastolic 34–109
[2022-08-05] MEDS: INSULIN LISPRO 100 UNITS/ML SUBCUT SCH ×4 (01:12→17:25)
[2022-08-05] MEDS: IPRATROPIUM/ALBUTEROL 0.5-3(2.5)MG/3ML NEB HHN SCH ×5 (03:35→23:53)
[2022-08-05] MEDS: NITROGLYCERIN OINT 1GM/INCH UDPKT TD SCH (05:46)
[2022-08-05] MEDS: BLOOD SUGAR DIAGNOSTIC STRIP TEST SCH ×4 (05:53→17:25)
[2022-08-05] MEDS: GUAIFENESIN-DM 200MG-20MG/10ML UDC PO SCH (05:59)
[2022-08-05] MEDS: FUROSEMIDE 40MG/4ML VIAL IVP SCH ×2 (05:59→17:24)
[2022-08-05] MEDS: ACETAMINOPHEN 325MG TABLET PO PRN ×3 (06:00→21:14)
[2022-08-05 06:18] LABS: HEMATOCRIT. 32.2 % (42.0-52.0); HEMOGLOBIN. 10.2 g/dL (14.0-18.0); MEAN CORPUSCULAR HEMOGLOBIN 28.7 pg (28.0-32.0); MEAN CORPUSCULAR VOLUME 90.9 fL (80.0-94.0); MEAN PLATELET VOLUME 10.1 fl (7.4-10.4); PLATELET 229 x1000/uL (130-400); RED BLOOD CELL COUNT 3.55 mill/uL (4.7-6.1); RED CELL DISTRIBUTION WIDTH 16.9 % (11.6-14.6)
[2022-08-05 06:56] LABS: PHOSPHORUS 8.2 mg/dL (2.5-4.9)
[2022-08-05] MEDS: BUDESONIDE 0.5MG/2ML NEB HHN SCH ×2 (08:00→16:26)
[2022-08-05] MEDS: ZINC SULFATE 220 MG ( 50 ) CAPSULE PO SCH (08:17)
[2022-08-05] MEDS: PREDNISONE 20MG TABLET PO SCH (08:17)
[2022-08-05] MEDS: FOLIC ACID/VITAMIN B COMP W-C TABLET PO SCH (08:17)
[2022-08-05] MEDS: LANTHANUM CARBONATE 500MG CHEW TABLET PO SCH ×3 (08:17→17:24)
[2022-08-05] MEDS: ASCORBIC ACID 500 MG TABLET PO SCH ×2 (08:17→21:13)
[2022-08-05] MEDS: AMLODIPINE 10MG TABLET PO SCH (09:00)
[2022-08-05 09:42] LABS: BG BASE EXCESS -5.5 mmol/L (-2.0-2.0); BG CARBOXYHEMOGLOBIN 1.7 % (0.5-1.5); BG DEOXYHEMOGLOBIN 5.8 % (0.0-5.0); BG FRACTION INSPIRED OXYGEN 60; BG HCO3 ACT 20.3 mmol/L (22.0-26.0); BG METHEMOGLOBIN 0.3 % (0.0-1.5); BG OXYGEN SATURATION 94.1 % (92.0-98.5); BG OXYHEMOGLOBIN 92.2 % (94.0-97.0); BG PCO2 40.3 mmHg (35.0-45.0); BG PH 7.319 (7.350-7.450); BG PO2 71.9 mmHg (75.0-100.0); BG SAMPLE SITE RIGHT RADIAL; BG TOTAL HEMOGLOBIN 11.4 g/dL (12.0-18.0); BG VENT MODE VENT - AC
[2022-08-05] MEDS: INSULIN GLARGINE 100 UNITS/ML SUBCUT SCH ×2 (10:51→21:14)
[2022-08-05] MEDS ORDERED: VANCOMYCIN 1G PREMIX 200 ML IV SCH (11:15)
[2022-08-05 12:15] LABS: PLATELET ESTIMATE NORMAL
[2022-08-05] MEDS ORDERED: VANCOMYCIN 2,000 MG in DEXT 5% WATER 500 ML IV NR (14:00)
[2022-08-05] MEDS ORDERED: METRONIDAZOLE 500MG TABLET PO SCH (14:00)
[2022-08-05] MEDS ORDERED: *NO ASPIRIN X 24 HOURS XX SCH (14:15)
[2022-08-05] MEDS ORDERED: AMIKACIN SULFATE 250 MG in SODIUM CHLORIDE 0.9% 100 ML IV NR (16:00)
[2022-08-05] MEDS: MEROPENEM 500 MG in SODIUM CHLORIDE 0.9% 50 ML IV SCH (16:11)
[2022-08-05] MEDS: ENOXAPARIN 30MG/0.3ML SYR SUBCUT SCH (21:13)
[2022-08-05] MEDS: FAMOTIDINE 20MG TABLET PO SCH (21:13)
[2022-08-06] VITALS (98 sets, daily range): BP systolic 83–159; BP diastolic 34–96
[2022-08-06] MEDS: BLOOD SUGAR DIAGNOSTIC STRIP TEST SCH ×4 (00:56→18:03)
[2022-08-06] MEDS: INSULIN LISPRO 100 UNITS/ML SUBCUT SCH ×4 (00:59→18:08)
[2022-08-06] MEDS: IPRATROPIUM/ALBUTEROL 0.5-3(2.5)MG/3ML NEB HHN SCH ×4 (03:49→15:22)
[2022-08-06] MEDS: FUROSEMIDE 40MG/4ML VIAL IVP SCH ×2 (05:19→18:08)
[2022-08-06] MEDS: ACETAMINOPHEN 325MG TABLET PO PRN ×3 (05:20→18:08)
[2022-08-06 05:40] LABS: HEMATOCRIT. 32.9 % (42.0-52.0); HEMOGLOBIN. 10.1 g/dL (14.0-18.0); MEAN CORPUSCULAR HEMOGLOBIN 27.8 pg (28.0-32.0); MEAN PLATELET VOLUME 9.8 fl (7.4-10.4); PLATELET 223 x1000/uL (130-400); RED BLOOD CELL COUNT 3.61 mill/uL (4.7-6.1); RED CELL DISTRIBUTION WIDTH 17.3 % (11.6-14.6)
[2022-08-06 06:12] LABS: PHOSPHORUS 7.7 mg/dL (2.5-4.9)
[2022-08-06] MEDS: BUDESONIDE 0.5MG/2ML NEB HHN SCH (08:00)
[2022-08-06 08:25] LABS: BG BASE EXCESS -2.1 mmol/L (-2.0-2.0); BG CARBOXYHEMOGLOBIN 0.5 % (0.5-1.5); BG DEOXYHEMOGLOBIN 8.9 % (0.0-5.0); BG FRACTION INSPIRED OXYGEN 40; BG HCO3 ACT 23.3 mmol/L (22.0-26.0); BG METHEMOGLOBIN 0.1 % (0.0-1.5); BG OXYHEMOGLOBIN 90.5 % (94.0-97.0); BG PCO2 42.5 mmHg (35.0-45.0); BG PH 7.357 (7.350-7.450); BG PO2 64.4 mmHg (75.0-100.0); BG SAMPLE SITE LEFT BRACHIAL; BG TOTAL HEMOGLOBIN 10.7 g/dL (12.0-18.0); BG TOTAL RESPIRATORY RATE 31 b/min; BG VENT MODE VENT - AC
[2022-08-06] MEDS: AMLODIPINE 10MG TABLET PO SCH (09:00)
[2022-08-06] MEDS: FOLIC ACID/VITAMIN B COMP W-C TABLET PO SCH (09:27)
[2022-08-06] MEDS: LANTHANUM CARBONATE 500MG CHEW TABLET PO SCH ×3 (09:27→18:08)
[2022-08-06] MEDS: PREDNISONE 20MG TABLET PO SCH (09:27)
[2022-08-06] MEDS: ZINC SULFATE 220 MG ( 50 ) CAPSULE PO SCH (09:27)
[2022-08-06] MEDS: ASCORBIC ACID 500 MG TABLET PO SCH ×2 (09:27→22:09)
[2022-08-06] MEDS: INSULIN GLARGINE 100 UNITS/ML SUBCUT SCH ×2 (09:28→22:12)
[2022-08-06] MEDS: MEROPENEM 500 MG in SODIUM CHLORIDE 0.9% 50 ML IV SCH (13:44)
[2022-08-06] MEDS ORDERED: VANCOMYCIN 750MG PREMIX 150 ML IV SCH (14:00)
[2022-08-06 19:10] LABS: ANTI-MYELOPEROXIDASE AB < 0.2 units (0.0-0.9); ANTI-PROTEINASE 3 ABS < 0.2 units (0.0-0.9)
[2022-08-06] MEDS: FAMOTIDINE 20MG TABLET PO SCH (22:09)
[2022-08-06] MEDS: ENOXAPARIN 30MG/0.3ML SYR SUBCUT SCH (22:09)
[2022-08-06 22:26] LABS: HEPATITIS B SURFACE ANTIGEN NEGATIVE
[2022-08-07] VITALS (96 sets, daily range): BP systolic 93–169; BP diastolic 30–99
[2022-08-07] MEDS: IPRATROPIUM/ALBUTEROL 0.5-3(2.5)MG/3ML NEB HHN SCH ×6 (00:26→20:28)
[2022-08-07] MEDS: INSULIN LISPRO 100 UNITS/ML SUBCUT SCH ×4 (01:01→17:53)
[2022-08-07] MEDS: FUROSEMIDE 40MG/4ML VIAL IVP SCH ×2 (06:17→17:53)
[2022-08-07] MEDS: VANCOMYCIN 1000MG/20ML ORAL SOLN PO SCH ×4 (06:18→17:53)
[2022-08-07] MEDS: BLOOD SUGAR DIAGNOSTIC STRIP TEST SCH ×4 (06:18→17:45)
[2022-08-07 06:51] LABS: NUCLEATED RED BLOOD CELLS 1 /100 WBC; PLATELET ESTIMATE NORMAL
[2022-08-07 07:09] LABS: HEMATOCRIT. 32.1 % (42.0-52.0); MEAN CORPUSCULAR HEMOGLOBIN 28.2 pg (28.0-32.0); MEAN PLATELET VOLUME 10.2 fl (7.4-10.4); PLATELET 222 x1000/uL (130-400); RED BLOOD CELL COUNT 3.53 mill/uL (4.7-6.1); RED CELL DISTRIBUTION WIDTH 17.6 % (11.6-14.6)
[2022-08-07 08:34] LABS: CHLORIDE 99 mEq/L (98-107)
[2022-08-07 08:40] LABS: BG BASE EXCESS -6.9 mmol/L (-2.0-2.0); BG CARBOXYHEMOGLOBIN 0.7 % (0.5-1.5); BG DEOXYHEMOGLOBIN 2.5 % (0.0-5.0); BG FRACTION INSPIRED OXYGEN 60; BG HCO3 ACT 19.5 mmol/L (22.0-26.0); BG OXYGEN SATURATION 97.5 % (92.0-98.5); BG OXYHEMOGLOBIN 96.8 % (94.0-97.0); BG PCO2 42.6 mmHg (35.0-45.0); BG PH 7.278 (7.350-7.450); BG PO2 117.7 mmHg (75.0-100.0); BG SAMPLE SITE LEFT BRACHIAL; BG TOTAL HEMOGLOBIN 10.9 g/dL (12.0-18.0); BG TOTAL RESPIRATORY RATE 28 b/min; BG VENT MODE VENT - AC
[2022-08-07] MEDS: AMLODIPINE 10MG TABLET PO SCH (09:00)
[2022-08-07 09:09] LABS: PHOSPHORUS 9.4 mg/dL (2.5-4.9)
[2022-08-07] MEDS: ASCORBIC ACID 500 MG TABLET PO SCH ×2 (09:47→22:41)
[2022-08-07] MEDS: FOLIC ACID/VITAMIN B COMP W-C TABLET PO SCH (09:47)
[2022-08-07] MEDS: PREDNISONE 20MG TABLET PO SCH (09:47)
[2022-08-07] MEDS: ZINC SULFATE 220 MG ( 50 ) CAPSULE PO SCH (09:47)
[2022-08-07] MEDS: LANTHANUM CARBONATE 500MG CHEW TABLET PO SCH ×3 (09:47→17:53)
[2022-08-07] MEDS: INSULIN GLARGINE 100 UNITS/ML SUBCUT SCH ×2 (09:48→22:42)
[2022-08-07] MEDS: MEROPENEM 500 MG in SODIUM CHLORIDE 0.9% 50 ML IV SCH (13:06)
[2022-08-07 13:07] LABS: ATYPICAL P-ANCA <1:20 titer (Neg:<1:20); CYTOPLASMIC C-ANCA <1:20 titer (Neg:<1:20); PERINUCLEAR P-ANCA <1:20 titer (Neg:<1:20)
[2022-08-07] MEDS: MIDAZOLAM HCL 100 MG in SODIUM CHLORIDE 0.9% 100 ML IV PRN (14:25)
[2022-08-07] MEDS ORDERED: VANCOMYCIN 750MG PREMIX 150 ML IV SCH (18:00)
[2022-08-07] MEDS: ENOXAPARIN 30MG/0.3ML SYR SUBCUT SCH (22:41)
[2022-08-07] MEDS: FAMOTIDINE 20MG TABLET PO SCH (22:41)
[2022-08-08] VITALS (98 sets, daily range): BP systolic 102–155; BP diastolic 27–121
[2022-08-08] MEDS: BLOOD SUGAR DIAGNOSTIC STRIP TEST SCH ×5 (00:22→23:23)
[2022-08-08] MEDS: IPRATROPIUM/ALBUTEROL 0.5-3(2.5)MG/3ML NEB HHN SCH ×7 (00:52→23:54)
[2022-08-08] MEDS: VANCOMYCIN 1000MG/20ML ORAL SOLN PO SCH ×5 (01:04→23:23)
[2022-08-08] MEDS: INSULIN LISPRO 100 UNITS/ML SUBCUT SCH ×8 (01:12→23:24)
[2022-08-08 05:36] LABS: HEMATOCRIT 31.9 % (42.0-52.0); MEAN CORPUSCULAR HEMOGLOBIN 28.6 pg (28.0-32.0); MEAN CORPUSCULAR VOLUME 90.9 fL (80.0-94.0); PLATELET 214 x1000/uL (130-400); RED BLOOD CELL COUNT 3.51 mill/uL (4.7-6.1); RED CELL DISTRIBUTION WIDTH 17.5 % (11.6-14.6)
[2022-08-08 05:36] LABS: CHLORIDE 99 mEq/L (98-107)
[2022-08-08] MEDS: FUROSEMIDE 40MG/4ML VIAL IVP SCH ×2 (05:53→18:10)
[2022-08-08 06:11] LABS: ANA IFA Negative (.)
[2022-08-08] MEDS: ZINC SULFATE 220 MG ( 50 ) CAPSULE PO SCH (08:32)
[2022-08-08] MEDS: FOLIC ACID/VITAMIN B COMP W-C TABLET PO SCH (08:32)
[2022-08-08] MEDS: LANTHANUM CARBONATE 500MG CHEW TABLET PO SCH ×3 (08:33→18:11)
[2022-08-08] MEDS: PREDNISONE 20MG TABLET PO SCH (08:33)
[2022-08-08] MEDS: AMLODIPINE 10MG TABLET PO SCH (08:33)
[2022-08-08] MEDS: ASCORBIC ACID 500 MG TABLET PO SCH ×2 (08:38→21:12)
[2022-08-08 09:06] LABS: BG BASE EXCESS -7.3 mmol/L (-2.0-2.0); BG CARBOXYHEMOGLOBIN 0.3 % (0.5-1.5); BG DEOXYHEMOGLOBIN 2.4 % (0.0-5.0); BG FRACTION INSPIRED OXYGEN 40; BG HCO3 ACT 17.3 mmol/L (22.0-26.0); BG METHEMOGLOBIN 0.3 % (0.0-1.5); BG OXYGEN SATURATION 97.6 % (92.0-98.5); BG PH 7.352 (7.350-7.450); BG SAMPLE SITE LEFT BRACHIAL; BG TOTAL HEMOGLOBIN 9.9 g/dL (12.0-18.0); BG TOTAL RESPIRATORY RATE 34 b/min; BG VENT MODE VENT - AC
[2022-08-08] MEDS: INSULIN GLARGINE 100 UNITS/ML SUBCUT SCH ×2 (10:09→21:13)
[2022-08-08] MEDS: MEROPENEM 500 MG in SODIUM CHLORIDE 0.9% 50 ML IV SCH (14:49)
[2022-08-08] MEDS: ACETAMINOPHEN 325MG TABLET PO PRN (14:58)
[2022-08-08] MEDS ORDERED: [UNRECOGNIZED DRUG - REMARK] XX SCH (15:00)
[2022-08-08] MEDS: FAMOTIDINE 20MG TABLET PO SCH (21:12)
[2022-08-08] MEDS: ENOXAPARIN 30MG/0.3ML SYR SUBCUT SCH (21:12)
[2022-08-09] VITALS (94 sets, daily range): BP systolic 45–160; BP diastolic 21–104
[2022-08-09] MEDS: ACETAMINOPHEN 650MG/20.3ML UDC PO PRN (01:20)
[2022-08-09] MEDS: IPRATROPIUM/ALBUTEROL 0.5-3(2.5)MG/3ML NEB HHN SCH ×5 (04:15→20:28)
[2022-08-09] MEDS: FUROSEMIDE 40MG/4ML VIAL IVP SCH ×2 (05:10→17:37)
[2022-08-09] MEDS: INSULIN LISPRO 100 UNITS/ML SUBCUT SCH ×6 (05:11→17:39)
[2022-08-09] MEDS: VANCOMYCIN 1000MG/20ML ORAL SOLN PO SCH ×3 (05:11→17:41)
[2022-08-09] MEDS: BLOOD SUGAR DIAGNOSTIC STRIP TEST SCH ×3 (05:11→17:40)
[2022-08-09] MEDS ORDERED: FENTANYL 2500MCG/250ML PMX 250 ML IV PRN (07:00)
[2022-08-09] MEDS ORDERED: FENTANYL CITRATE 2,500 MCG in SODIUM CHLORIDE 0.9% 200 ML IV PRN (07:00)
[2022-08-09 07:58] LABS: PLATELET ESTIMATE NORMAL
[2022-08-09 08:03] LABS: BG BASE EXCESS -4.6 mmol/L (-2.0-2.0); BG CARBOXYHEMOGLOBIN 0.2 % (0.5-1.5); BG DEOXYHEMOGLOBIN 4.6 % (0.0-5.0); BG FRACTION INSPIRED OXYGEN 45; BG HCO3 ACT 21.1 mmol/L (22.0-26.0); BG METHEMOGLOBIN 0.3 % (0.0-1.5); BG OXYGEN SATURATION 95.4 % (92.0-98.5); BG OXYHEMOGLOBIN 94.9 % (94.0-97.0); BG PCO2 41.1 mmHg (35.0-45.0); BG PH 7.328 (7.350-7.450); BG PO2 86.6 mmHg (75.0-100.0); BG SAMPLE SITE LEFT BRACHIAL; BG TOTAL HEMOGLOBIN 12.5 g/dL (12.0-18.0); BG VENT MODE VENT - AC
[2022-08-09 08:14] LABS: BASOPHILS % 0.9 % (0.0-2.0); EOSINOPHILS % 0.9 % (0.0-5.0); HEMATOCRIT. 35.4 % (42.0-52.0); HEMOGLOBIN. 11.2 g/dL (14.0-18.0); LYMPHOCYTES % 11.6 % (20.0-50.0); MEAN CORPUSCULAR HEMOGLOBIN 28.4 pg (28.0-32.0); MEAN CORPUSCULAR VOLUME 89.4 fL (80.0-94.0); MEAN PLATELET VOLUME 10.1 fl (7.4-10.4); MONOCYTES % 13.5 % (2.0-8.0); NEUTROPHILS % 73.1 % (40.0-76.0); PLATELET 199 x1000/uL (130-400); RED BLOOD CELL COUNT 3.95 mill/uL (4.7-6.1); RED CELL DISTRIBUTION WIDTH 17.7 % (11.6-14.6)
[2022-08-09] MEDS: LANTHANUM CARBONATE 500MG CHEW TABLET PO SCH ×3 (08:37→17:42)
[2022-08-09] MEDS: ZINC SULFATE 220 MG ( 50 ) CAPSULE PO SCH (08:38)
[2022-08-09] MEDS: PREDNISONE 20MG TABLET PO SCH (08:38)
[2022-08-09] MEDS: ASCORBIC ACID 500 MG TABLET PO SCH ×2 (08:38→20:47)
[2022-08-09] MEDS: FOLIC ACID/VITAMIN B COMP W-C TABLET PO SCH (08:38)
[2022-08-09] MEDS: AMLODIPINE 10MG TABLET PO SCH (08:39)
[2022-08-09] MEDS: INSULIN GLARGINE 100 UNITS/ML SUBCUT SCH ×2 (09:47→21:06)
[2022-08-09 11:32] LABS: PHOSPHORUS 7.9 mg/dL (2.5-4.9)
[2022-08-09] MEDS: MEROPENEM 500 MG in SODIUM CHLORIDE 0.9% 50 ML IV SCH (13:39)
[2022-08-09] MEDS: FAMOTIDINE 20MG TABLET PO SCH (20:47)
[2022-08-09 20:52] LABS: CLARITY URINE TURBID (CLEAR); COLOR URINE DARK YELLOW (YELLOW); KETONES URINE TRACE (NEGATIVE); LEUKOCYTE ESTERASE URINE 2+ (NEGATIVE); NITRITE URINE NEGATIVE (NEGATIVE); OCCULT BLOOD URINE 3+ (NEGATIVE); PROTEIN URINE 4+ (NEGATIVE); SPECIFIC GRAVITY URINE 1.032 (1.005-1.030); UROBILINOGEN URINE 0.2 E.U./dL (0.2-1.0)
[2022-08-09] MEDS: ENOXAPARIN 30MG/0.3ML SYR SUBCUT SCH (20:55)
[2022-08-09] MEDS: ACETAMINOPHEN 325MG TABLET PO PRN (20:56)
[2022-08-10] VITALS (99 sets, daily range): BP systolic 86–166; BP diastolic 15–58
[2022-08-10] MEDS: VANCOMYCIN 1000MG/20ML ORAL SOLN PO SCH ×4 (00:11→17:11)
[2022-08-10] MEDS: INSULIN LISPRO 100 UNITS/ML SUBCUT SCH ×8 (00:12→17:15)
[2022-08-10] MEDS: BLOOD SUGAR DIAGNOSTIC STRIP TEST SCH ×4 (00:13→17:15)
[2022-08-10] MEDS: IPRATROPIUM/ALBUTEROL 0.5-3(2.5)MG/3ML NEB HHN SCH ×7 (00:41→23:56)
[2022-08-10] MEDS: NOREPINEPHRINE 32 MG in DEXT 5% WATER 218 ML IV PRN ×2 (03:32→17:08)
[2022-08-10] MEDS: FUROSEMIDE 40MG/4ML VIAL IVP SCH ×2 (06:16→06:33)
[2022-08-10 06:34] LABS: CHLORIDE 95 mEq/L (98-107)
[2022-08-10] MEDS ORDERED: SODIUM POLYSTYRENE SULFONATE 15 G/60 ML BOT PO SCH (08:00)
[2022-08-10] MEDS ORDERED: SODIUM BICARBONATE 8.4% 1 MEQ/ML 50ML SYR IV SCH (08:00)
[2022-08-10] MEDS ORDERED: DEXTROSE 50% WATER 50ML SYRINGE IV SCH (08:00)
[2022-08-10] MEDS ORDERED: INSULIN REGULAR (HUMULIN R) 300UNITS/3ML VIAL IV SCH (08:00)
[2022-08-10 08:09] LABS: PHOSPHORUS > 9.0 mg/dL (2.5-4.9)
[2022-08-10] MEDS: LANTHANUM CARBONATE 500MG CHEW TABLET PO SCH ×3 (08:45→17:11)
[2022-08-10] MEDS: FOLIC ACID/VITAMIN B COMP W-C TABLET PO SCH (08:45)
[2022-08-10] MEDS: ASCORBIC ACID 500 MG TABLET PO SCH (08:47)
[2022-08-10] MEDS: AMLODIPINE 10MG TABLET PO SCH (08:49)
[2022-08-10] MEDS: ZINC SULFATE 220 MG ( 50 ) CAPSULE PO SCH (08:54)
[2022-08-10] MEDS: PREDNISONE 20MG TABLET PO SCH (09:28)
[2022-08-10] MEDS: INSULIN GLARGINE 100 UNITS/ML SUBCUT SCH ×2 (09:31→21:35)
[2022-08-10 12:46] LABS: HEMATOCRIT. 32.7 % (42.0-52.0); HEMOGLOBIN. 10.4 g/dL (14.0-18.0); MEAN CORPUSCULAR HEMOGLOBIN 28.2 pg (28.0-32.0); MEAN CORPUSCULAR VOLUME 88.7 fL (80.0-94.0); MEAN PLATELET VOLUME 9.8 fl (7.4-10.4); PLATELET 212 x1000/uL (130-400); RED BLOOD CELL COUNT 3.69 mill/uL (4.7-6.1); RED CELL DISTRIBUTION WIDTH 17.4 % (11.6-14.6)
[2022-08-10] MEDS: MEROPENEM 500 MG in SODIUM CHLORIDE 0.9% 50 ML IV SCH (13:49)
[2022-08-10 14:04] LABS: NUCLEATED RED BLOOD CELLS 2 /100 WBC; PLATELET ESTIMATE NORMAL
[2022-08-10] MEDS: LORAZEPAM 2MG/ML CPJ IV SCH ×3 (15:30→21:30)
[2022-08-10] MEDS ORDERED: NOREPINEPHRINE 32 MG in DEXT 5% WATER 218 ML IV PRN (16:45)
[2022-08-10] MEDS: CALCIUM ACETATE 667MG CAPSULE NG SCH (17:11)
[2022-08-10] MEDS: ENOXAPARIN 30MG/0.3ML SYR SUBCUT SCH (21:33)
[2022-08-10] MEDS: ACETAMINOPHEN 650MG/20.3ML UDC PO PRN (21:33)
[2022-08-10] MEDS: FAMOTIDINE 20MG TABLET PO SCH (21:34)
[2022-08-11] VITALS (75 sets, daily range): BP systolic 67–155; BP diastolic 19–123
[2022-08-11] MEDS: VANCOMYCIN 1000MG/20ML ORAL SOLN PO SCH ×4 (00:24→18:05)
[2022-08-11] MEDS: BLOOD SUGAR DIAGNOSTIC STRIP TEST SCH ×4 (00:24→17:58)
[2022-08-11] MEDS: LORAZEPAM 2MG/ML CPJ IV SCH ×8 (00:30→21:24)
[2022-08-11] MEDS: INSULIN LISPRO 100 UNITS/ML SUBCUT SCH ×8 (00:31→18:06)
[2022-08-11] MEDS: IPRATROPIUM/ALBUTEROL 0.5-3(2.5)MG/3ML NEB HHN SCH ×5 (04:01→20:23)
[2022-08-11 06:12] LABS: HEMATOCRIT 35.1 % (42.0-52.0); HEMOGLOBIN 11.2 g/dL (14.0-18.0); MEAN CORPUSCULAR HEMOGLOBIN 28.4 pg (28.0-32.0); PLATELET 225 x1000/uL (130-400); RED BLOOD CELL COUNT 3.95 mill/uL (4.7-6.1); RED CELL DISTRIBUTION WIDTH 17.5 % (11.6-14.6)
[2022-08-11 06:20] LABS: CHLORIDE 96 mEq/L (98-107)
[2022-08-11 06:27] LABS: PHOSPHORUS 7.6 mg/dL (2.5-4.9)
[2022-08-11] MEDS ORDERED: SODIUM POLYSTYRENE SULFONATE 15 G/60 ML BOT PO NR (07:45)
[2022-08-11] MEDS: AMLODIPINE 10MG TABLET PO SCH (09:00)
[2022-08-11] MEDS: FOLIC ACID/VITAMIN B COMP W-C TABLET PO SCH (09:21)
[2022-08-11] MEDS: LANTHANUM CARBONATE 500MG CHEW TABLET PO SCH ×3 (09:21→18:06)
[2022-08-11] MEDS: PREDNISONE 20MG TABLET PO SCH (09:21)
[2022-08-11] MEDS: CALCIUM ACETATE 667MG CAPSULE NG SCH ×3 (09:22→18:06)
[2022-08-11] MEDS: INSULIN GLARGINE 100 UNITS/ML SUBCUT SCH ×2 (09:27→21:25)
[2022-08-11] MEDS: MEROPENEM 500 MG in SODIUM CHLORIDE 0.9% 50 ML IV SCH (14:35)
[2022-08-11] MEDS: FAMOTIDINE 20MG TABLET PO SCH (21:24)
[2022-08-11] MEDS: ENOXAPARIN 30MG/0.3ML SYR SUBCUT SCH (21:24)
[2022-08-11] MEDS: ACETAMINOPHEN 325MG TABLET PO PRN (21:30)
== END 2022-08-11 23:25 | disposition short-term general hospital (02) | DRG 207 ==
LOC: ER 05:31 → 5EST 10:08 → EDBEDREQ 10:20 → EDBEDREQTM 10:20 → ENRESERV 11:37 → CVICU 07-28 16:20
PROVIDERS: ADMIT Internal Medicine; ATTEND Internal Medicine
PROC: 5A09457 Assistance with Respiratory Ventilation, 24-96 Consecutive Hours, Continuous Positive Airway Pressure (ICD-10-PCS; 2022-07-26)
PROC: 5A1955Z Respiratory Ventilation, Greater than 96 Consecutive Hours (ICD-10-PCS; principal; 2022-07-28)
PROC: 0BH17EZ Insertion of Endotracheal Airway into Trachea, Via Natural or Artificial Opening (ICD-10-PCS; 2022-07-28)
PROC: 02HV33Z Insertion of Infusion Device into Superior Vena Cava, Percutaneous Approach (ICD-10-PCS; 2022-07-29)
PROC: B548ZZA Ultrasonography of Superior Vena Cava, Guidance (ICD-10-PCS; 2022-07-29)
PROC: 5A1D70Z Performance of Urinary Filtration, Intermittent, Less than 6 Hours Per Day (ICD-10-PCS; 2022-07-29)
PROC: 5A1D70Z Performance of Urinary Filtration, Intermittent, Less than 6 Hours Per Day (ICD-10-PCS; 2022-07-30)
PROC: 5A1D70Z Performance of Urinary Filtration, Intermittent, Less than 6 Hours Per Day (ICD-10-PCS; 2022-07-31)
PROC: 5A1D70Z Performance of Urinary Filtration, Intermittent, Less than 6 Hours Per Day (ICD-10-PCS; 2022-08-01)
PROC: 5A1D70Z Performance of Urinary Filtration, Intermittent, Less than 6 Hours Per Day (ICD-10-PCS; 2022-08-02)
PROC: 5A1D70Z Performance of Urinary Filtration, Intermittent, Less than 6 Hours Per Day (ICD-10-PCS; 2022-08-03)
PROC: 5A1D70Z Performance of Urinary Filtration, Intermittent, Less than 6 Hours Per Day (ICD-10-PCS; 2022-08-04)
PROC: 5A1D70Z Performance of Urinary Filtration, Intermittent, Less than 6 Hours Per Day (ICD-10-PCS; 2022-08-05)
PROC: 5A1D70Z Performance of Urinary Filtration, Intermittent, Less than 6 Hours Per Day (ICD-10-PCS; 2022-08-07)
PROC: 5A1D70Z Performance of Urinary Filtration, Intermittent, Less than 6 Hours Per Day (ICD-10-PCS; 2022-08-08)
PROC: 5A1D70Z Performance of Urinary Filtration, Intermittent, Less than 6 Hours Per Day (ICD-10-PCS; 2022-08-10)
DX: J96.01 Acute respiratory failure with hypoxia (principal); A41.9 Sepsis, unspecified organism; G92.8 Other toxic encephalopathy; N17.0 Acute kidney failure with tubular necrosis; E43 Unspecified severe protein-calorie malnutrition; J18.9 Pneumonia, unspecified organism; N18.6 End stage renal disease; J44.1 Chronic obstructive pulmonary disease with (acute) exacerbation; I50.40 Unspecified combined systolic (congestive) and diastolic (congestive) heart failure; E66.2 Morbid (severe) obesity with alveolar hypoventilation; N39.0 Urinary tract infection, site not specified; D68.2 Hereditary deficiency of other clotting factors; J44.0 Chronic obstructive pulmonary disease with (acute) lower respiratory infection; E87.20 Acidosis, unspecified; D68.51 Activated protein C resistance; E87.29 Other acidosis; N20.1 Calculus of ureter; I13.2 Hypertensive heart and chronic kidney disease with heart failure and with stage 5 chronic kidney disease, or end stage renal disease; J96.02 Acute respiratory failure with hypercapnia; E87.5 Hyperkalemia; E11.51 Type 2 diabetes mellitus with diabetic peripheral angiopathy without gangrene; E11.22 Type 2 diabetes mellitus with diabetic chronic kidney disease; E11.65 Type 2 diabetes mellitus with hyperglycemia; E83.39 Other disorders of phosphorus metabolism; L89.316 Pressure-induced deep tissue damage of right buttock; K52.9 Noninfective gastroenteritis and colitis, unspecified; K62.89 Other specified diseases of anus and rectum; L89.896 Pressure-induced deep tissue damage of other site; S80.811A Abrasion, right lower leg, initial encounter; S90.415A Abrasion, left lesser toe(s), initial encounter; D63.1 Anemia in chronic kidney disease; S00.431A Contusion of right ear, initial encounter; S30.0XXA Contusion of lower back and pelvis, initial encounter; Z86.73 Personal history of transient ischemic attack (TIA), and cerebral infarction without residual deficits; Z86.718 Personal history of other venous thrombosis and embolism; Z88.8 Allergy status to other drugs, medicaments and biological substances; Z87.891 Personal history of nicotine dependence; Z89.412 Acquired absence of left great toe; Z68.37 Body mass index [BMI] 37.0-37.9, adult; X58.XXXA Exposure to other specified factors, initial encounter; W06.XXXA Fall from bed, initial encounter; Y93.89 Activity, other specified; Y92.003 Bedroom of unspecified non-institutional (private) residence as the place of occurrence of the external cause; Y99.8 Other external cause status; Z99.2 Dependence on renal dialysis
CPT/HCPCS: 31500; 36415; 36556; 36600; 71045; 74176; 76604; 76705; 76770; 76937; 80048; 80053; 80061; 80076; 80202; 81003; 82140; 82375; 82550; 82553; 82570; 82607; 82746; 82805; 82962; 83036; 83520; 83540; 83550; 83605; 83735; 83880; 84100; 84132; 84134; 84145; 84156; 84439; 84443; 84484; 84520; 85025; 85027; 86038; 86160; 86256; 86592; 86705; 86706; 86709; 86803; 86850; 86900; 86920; 87070; 87077; 87186; 87340; 87426; 87804; 90935; 93005; 93306; 93923; 93970; 93971; 94002; 94003; 94640; 94644; 94660; 99291; A6261; C1752; C1893; C9803; J0278; J0360; J0610; J0692; J1650; J1815; J1940; J2060; J2150; J2185; J2250; J2920; J3010; J3370; J3490; J7040; J7050; J7060; J7512; J7626; A4315